=== PATIENT | male | born 1950 | race Caucasian/White ===

== ENCOUNTER → 2023-12-24 09:19 | Outpatient (REF) | payer MEDICARE, SELFPAY | LOC: HWRCS 09:19 | PROVIDERS: ATTENDING PHYSICIAN Internal Medicine Cardiovascular Disease; FAMILY PHYSICIAN Hospitalist | DX: I25.10 Atherosclerotic heart disease of native coronary artery without angina pectoris (principal); Z98.890 Other specified postprocedural states | CPT/HCPCS: 93306 ==

== ENCOUNTER 2024-06-18 09:33 | Day surgery (SDC) | payer MEDICARE, SELFPAY | END 2024-06-18 12:20 | disposition home or self-care (01) | LOC: CATH 09:33 | PROVIDERS: ATTENDING PHYSICIAN Internal Medicine; FAMILY PHYSICIAN Hospitalist | DX: I48.0 Paroxysmal atrial fibrillation (principal); I10 Essential (primary) hypertension; I25.10 Atherosclerotic heart disease of native coronary artery without angina pectoris; E78.00 Pure hypercholesterolemia, unspecified; G47.33 Obstructive sleep apnea (adult) (pediatric); Z79.01 Long term (current) use of anticoagulants | CPT/HCPCS: 92960; 93005 ==

== ENCOUNTER 2024-10-11 10:06 | Emergency (ER) | payer MEDICARE, SELFPAY ==
[2024-10-11] VITALS (10 sets, daily range): BP systolic 104–148; BP diastolic 73–104; BMI 30.5
--- NOTE | 2024-10-11 11:57 | ED.GENMED ---
History of Present Illness
<Gallo Schofield, DO - Last Filed: 10/12/24 19:48>
General
Chief Complaint: Change in Mental Status
Source: patient and family
Exam Limitations: none
Time Seen by Provider: 10/11/24 11:30
Nursing documentation reviewed up to this point in time: agreed with
History of Present Illness
History of Present Illness:
Note:
CHIEF COMPLAINT(S)
Sciatic nerve pain causing sleep disturbance and generalized body pain.
HISTORY OF PRESENT ILLNESS
The patient is a 74-year-old male who presents with complaints of sciatic nerve pain that has been persisting and worsening over the last month. This pain is particularly bothersome during the night and has been affecting the patients sleep. The
patient reports that this issue has been ongoing throughout the summer. Additionally, the patient also mentioned a previous injury to the rotator cuff sustained last summer, which has resulted in persistent pain. He feels that his body is 'riddled
with pain' and is seeking effective pain management solutions. The patient notes a lack of relief from current treatments and expresses frustration with not being prescribed stronger pain medications. Despite some belief that there might be an
element of arthritis, the patient is convinced that the sciatic nerve pain is predominant. The patient is not currently on any specific medication regimen for his pain, having only been given short-term medications in the past, with the
recommendation to reevaluate after a couple of weeks.
PHYSICAL EXAM
General: Afebrile, no acute distress.
Skin: Normal.
Head: Normocephalic, atraumatic.
Eyes, Ears, Nose, and Throat: Normal.
Cardiovascular: Heart sounds S1, S2 present; no S3, S4, murmurs.
Respiratory: No respiratory distress observed.
Gastrointestinal: Abdomen soft, non-tender, non-distended.
Musculoskeletal: No noted deformities or tenderness.
Neurological: Cranial nerves II through XII intact, no neurological deficits.
DIFFERENTIAL DIAGNOSIS
The Differential Diagnosis includes, in no particular order and is not limited to:
1. Sciatica
2. Lumbar Radiculopathy
3. Rotator Cuff Injury
4. Osteoarthritis
5. Spinal Stenosis
6. Hereditary Neuropathy
7. Peripheral Neuropathy
8. Fibromyalgia
9. Degenerative Disc Disease
10. Chronic Pain Syndrome
Phy Exam
<Gallo Schofield, DO - Last Filed: 10/12/24 19:48>
Physical Exam
Physical Exam:
.
Course
<Gallo Schofield, DO - Last Filed: 10/12/24 19:48>
Orders/Labs/Results
Orders:
Orders
10/11/24 12:23
CT Head W/o Iv Contrast Urgent
Comment:
Reason For Exam: confusion, weakness
Cardiac Monitoring- Treatment ONCE
IV Insert/Care/Rem.- Treatment PRN
10/11/24 12:24
Electrocardiogram (*1) Stat
Reason for Study: Other
Other Reason for Exam: neuro symptoms
EKG- Treatment ONCE
10/11/24 12:55
Complete Blood Count/With Diff Urgent
10/11/24 14:09
Comprehensive Metabolic Panel Urgent
10/11/24 15:49
Urinalysis Reflex To Culture Urgent
Date Specimen was Collected: 10/11/24
Time Specimen was Collected: 15:35
Urine Microscopic Reflex Cult Urgent
Abnormal Lab Results
10/11/24 10/11/24 10/11/24
12:55 14:09 15:49
MPV 10.8 H fL
(7.4-10.4)
Absolute Monos (auto) 1.0 H 10^3/uL
(0.1-0.6)
Monocytes % 11.4 H %
(1.7-9.3)
BUN 35 H mg/dl
(9-20)
Urine Bacteria (Reflex) Few A
(Negative)
Urine Albumin (Reflex) 1+ A
(Neg - Trace)
10/11/24 12:55
10/11/24 14:09
Vital Signs
Initial and Last Documented VS:
Initial Vital Signs
Temp Pulse Resp BP Pulse Ox
98.6 F 86 16 129/79 97
10/11/24 10:13 10/11/24 10:13 10/11/24 10:13 10/11/24 10:13 10/11/24 10:13
Last Documented Vital Signs
Temp Pulse Resp BP Pulse Ox
98.6 F 80 21 118/81 98
10/11/24 10:13 10/11/24 16:00 10/11/24 16:00 10/11/24 16:00 10/11/24 16:00
<July Lynn DO - Last Filed: 10/11/24 16:40>
Orders/Labs/Results
Orders:
Orders
10/11/24 12:23
CT Head W/o Iv Contrast Urgent
Comment:
Reason For Exam: confusion, weakness
Cardiac Monitoring- Treatment ONCE
IV Insert/Care/Rem.- Treatment PRN
10/11/24 12:24
Electrocardiogram (*1) Stat
Reason for Study: Other
Other Reason for Exam: neuro symptoms
EKG- Treatment ONCE
10/11/24 12:55
Complete Blood Count/With Diff Urgent
10/11/24 14:09
Comprehensive Metabolic Panel Urgent
10/11/24 15:49
Urinalysis Reflex To Culture Urgent
Date Specimen was Collected: 10/11/24
Time Specimen was Collected: 15:35
Urine Microscopic Reflex Cult Urgent
Abnormal Lab Results
10/11/24 10/11/24 10/11/24
12:55 14:09 15:49
MPV 10.8 H fL
(7.4-10.4)
Absolute Monos (auto) 1.0 H 10^3/uL
(0.1-0.6)
Monocytes % 11.4 H %
(1.7-9.3)
BUN 35 H mg/dl
(9-20)
Urine Bacteria (Reflex) Few A
(Negative)
Urine Albumin (Reflex) 1+ A
(Neg - Trace)
10/11/24 12:55
10/11/24 14:09
Vital Signs
Initial and Last Documented VS:
Initial Vital Signs
Temp Pulse Resp BP Pulse Ox
98.6 F 86 16 129/79 97
10/11/24 10:13 10/11/24 10:13 10/11/24 10:13 10/11/24 10:13 10/11/24 10:13
Last Documented Vital Signs
Temp Pulse Resp BP Pulse Ox
98.6 F 80 21 118/81 98
10/11/24 10:13 10/11/24 16:00 10/11/24 16:00 10/11/24 16:00 10/11/24 16:00
<Gallo Schofield DO - Last Filed: 10/12/24 19:48>
*Pulse Oximetry
SaO2: 97
Oxygen Mode of Delivery: Room air
Patient hypoxic: no
*Critical Care Note
Total Time (30-74mins, 75-104mins- exclusive of procedures): Not Applicable
<July Lynn DO - Last Filed: 10/11/24 16:40>
Update Note
Update Note:
Attending Signout Note (July Lynn DO)
14:30 -assuming care patient, 74-year-old male presenting to the emergency department for increased confusion. Patient arrives with his sons, noted confusion for the past few days. Hemodynamically stable in the emergency department. Of note, is
having issues with sciatica, and is currently on Tylenol 3, unclear if medication reaction. patient is also on a benzodiazepine. No present focal neurologic deficits. Lab work thus far is grossly unremarkable. Pending CT head imaging and
urinalysis.
16:20 -urine without significant sign of infection. CT without acute intracranial abnormality. On additional questioning, onofre notes that patient lives at home by himself. Has been increasingly unsteady secondary to his sciatic pain.
Additionally has been taking care of himself, recent weight loss, poor p.o. intake. Orthostatics checked because patient had noted some dizziness, positive. At this time do not feel the patient is a safe disposition home given his orthostatic
hypotension, dizziness, sciatic pain. Plan for admission for case management consultation, PT/OT, monitoring of orthostatic hypotension
16:40 - wentin the room to again discuss results and plan with patient and family. Patient is adamantly refusing to stay in the hospital. He is presently awake and oriented, understands the risks of leaving. I explained that I was concerned about
his blood pressure. He notes that this is chronic, follows with Dr. Rubio and they have been adjusting his dose of the metoprolol. He explains that he does not feel confused and he would like to go home to follow-up with his doctor. At this time
I cannot force him to stay in the hospital, appears competent to make his own decisions
ED Attending Note
<Gallo Schofield, DO - Last Filed: 10/12/24 19:48>
-
Portions of this chart may have been created with voice recognition software.� Occasional wrong word or��sound alike� substitutions may have occurred due to the inherent limitations of voice recognition software.
Discharge Plan
Departure
Patient Disposition: Home (Routine Discharge)
Date of Disposition: 10/11/24
Time of Disposition: 16:40
Patient with high blood pressure during this ER visit?: No
Condition: Fair
Discharge Problem:
Orthostatic hypotension, Change in mental status
Instructions: Sciatica (DC), BLOOD PRESSURE
Prescriptions:
No Action
metoprolol succinate 25 MG tablet extended release 24 hr
25 mg PO DAILY
Patient Comments:
1/2 pill in am and half in pm
simvastatin 20 MG tablet
20 mg PO QPM
multivitamin [Daily Multiple] 1 EACH tablet
1 tab PO DAILY
alprazolam [Xanax] 0.25 MG tablet
1 mg PO HS
omeprazole 20 MG tablet,delayed release (DR/EC)
40 mg PO BID
zinc 50 MG tablet
50 mg PO DAILY
coenzyme [id number] E 1 CAP capsule
1 cap PO DAILY
Eliquis 5 MG tablet
5 mg PO BID
pyridoxine (vitamin B6) 100 MG/2.5 ML liquid
100 mg PO DAILY
Referrals:
Josue Dai MD [Family Provider]
Activity Restrictions/Additional Instructions:
You were seen in the emergency department for family concerns of confusion
You were found to have reassuring laboratory analysis and CT imaging of your brain. However your vitals did show low blood pressure when going from a sitting to standing position which we call orthostatic hypotension. We expressed concern
regarding these vital signs and recommended admission for continued monitoring, as well as PT consultation for your sciatica, and case management. You adamantly refused, explained that you could fall due to your symptoms which could lead to
additional injuries given your anticoagulation with Eliquis.
Please follow-up closely with your primary care physician.
Return to the emergency department for any worsening of your symptoms, or any development of chest pain, difficulty breathing, abdominal pain with persistent vomiting and inability to tolerate food or liquid by mouth (concern for dehydration),
weakness, headache or confusion, fever greater than 100.4, or any additional symptoms that are concerning to you.
Thank you for choosing [facility].
Interventions
Interventions:
*Risk Screen - Suicide Last Done: 10/11/24 15:00
*General Assessment Last Done: 10/11/24 14:37
*Neglect/Abuse Screening Last Done: 10/11/24 15:00
*ED- Fall Risk Assessment Last Done: 10/11/24 14:37
*ED COVID-19 Vaccine History Last Done: 10/11/24 14:37
*Nursing Disposition Last Done: 10/11/24 17:12
ED- Cardiac Assessment Last Done: 10/11/24 15:00
ED-Musculoskeletal Assessment Last Done: 10/11/24 17:09
ED- Neurological Assessment Last Done: 10/11/24 15:00
ED-Psychological Assessment Last Done: 10/11/24 15:00
ED Swallowing Screen Last Done: 10/11/24 17:09
Discharge Date and Time
Discharge Date/Time: 10/11/24 17:14
Print Language: LATVIAN
[2024-10-11 13:04] LABS: Hematocrit 44.1 % (39.0-52.0); Hemoglobin 14.7 g/dL (13.0-18.0); Mean Corp Hgb Conc. 33.3 g/dL (33.0-37.0); Mean Corpuscular Volume 91.7 fL (80.0-94.0); Nucleated Red Blood Cells % 0 % (-); Platelet Count 218 10^3/uL (130-400); Red Cell Dist. Width 14.1 % (11.5-14.5)
[2024-10-11 14:31] LABS: ALT (SGPT) 26 U/L (0-50); AST (SGOT) 25 U/L (17-59); Albumin 4.2 g/dl (3.5-5.0); Alkaline Phosphatase 54 U/L (38-126); Blood Urea Nitrogen 35 mg/dl (9-20); Calcium 9.0 mg/dl (8.4-10.2); Carbon Dioxide 27 mmol/L (22-30); Chloride 107 mmol/L (98-107); Estimated Creatinine Clearance 66 ml/min; Glucose 99 mg/dl (70-99); Potassium 4.0 mmol/L (3.5-5.1); Sodium 139 mmol/L (135-145); Total Protein 6.5 g/dl (6.3-8.2); eGFR > 60.00
[2024-10-11 15:55] LABS: Urine Character Clear (Clear)
[2024-10-11 16:02] LABS: Urine Red Blood Cell 0-2 /HPF (0-2); Urine Squamous Cell 0-2 /LPF (Few)
== END 2024-10-11 17:14 | disposition home or self-care (01) ==
LOC: EMR 10:06
PROVIDERS: Student in an Organized Health Care Education/Training Program; EMERGENCY PHYSICIAN Emergency Medicine; FAMILY PHYSICIAN Hospitalist
DX: I95.1 Orthostatic hypotension (principal); R41.82 Altered mental status, unspecified
CPT/HCPCS: 99284; 70450; 80053; 81003; 81015; 85025; 93005